=== PATIENT | female | born 1985 | race Caucasian/White ===

== ENCOUNTER 2018-11-24 12:53 | Outpatient (CLI) | payer SELFPAY ==
[2018-11-24] MEDS ORDERED: LACTATED RINGERS 1,000 ML IV ONE (13:47)
[2018-11-24 13:51] VITALS: BP 123/75
--- NOTE | 2018-11-24 15:26 | Ultrasound Report ---
ULTRASOUND OB LIMITED History: Confirm presentation Technique: Transabdominal ultrasound with Doppler interrogation. Gestation: Single Position: Cephalic Heart Rate: 131 BPM
== END 2018-11-24 14:50 | disposition home or self-care (01) ==
LOC: TRG 12:53 → UNDOADMIN 16:19 → LD 16:19
PROVIDERS: ATTEND Obstetrics & Gynecology
DX: O47.1 False labor at or after 37 completed weeks of gestation (principal); Z3A.39 39 weeks gestation of pregnancy
CPT/HCPCS: 59025; 76815; 96360; J7120

== ENCOUNTER 2018-11-24 21:07 | Inpatient (IN) | payer OTHER ==
[2018-11-24] MEDS ORDERED: LACTATED RINGERS 1,000 ML IV SCH (23:45)
[2018-11-24] MEDS ORDERED: PITOCin/NS 20 UNIT/1000ML DRIP 20 UNITS/1,000 ML BAG IV SCH (23:45)
[2018-11-24] MEDS ORDERED: NARCAN 0.4 MG/1 ML IV PRN (23:58)
[2018-11-24] MEDS ORDERED: BRETHINE SUB-Q PRN (23:58)
[2018-11-24] MEDS ORDERED: ZOFRAN IV PRN (23:58)
[2018-11-24] MEDS ORDERED: XYLOCAINE 2% INFILTRATI ONE (23:58)
[2018-11-24] MEDS ORDERED: MINERAL OIL PO PRN (23:58)
[2018-11-25 00:17] LABS: Hematocrit 37.1 % (30.3-42.9); Hemoglobin 12.5 gm/dl (10.1-14.3); Mean Corpuscular HGB Conc 34 % (30-34); Mean Corpuscular Volume 92 fl (79-97); Platelet Count 214 K/mm3 (140-440); Red Blood Count 4.05 M/mm3 (3.65-5.03); Red Cell Distribution Width 13.2 % (13.2-15.2)
[2018-11-25] MEDS: STADOL IV PRN ×2 (03:04→11:11)
--- NOTE | 2018-11-25 10:07 | History and Physical Report ---
History of Present Illness Date of examination: 11/25/18 Date of admission: 11/25/18 00:06 Chief complaint: Labor Pains History of present illness: Early entry to care at [facility], uncomplicated course. Past History Past Medical History: no pertinent history Past Surgical History: no surgical history Family/Genetic History: none Social history: no significant social history, single - Obstetrical History Expected Date of Delivery: 11/30/18 Actual Gestation: 39 Week(s) 2 Day(s) : 3 Para: 2 Hx # Term Pregnancies: 1 Number of Pregnancies: 1 Number of Living Children: 2 #1 Gender: Female year: ,[birth year] Birthweight: 2.722 kg Method of Delivery: Vaginal Gestational age at delivery: 40 Complications: none #2 Infant Gender: Male year: 2[birth year] Birthweight: 2.268 kg Method of Delivery: Vaginal Gestational age at delivery: 34 Complications: none Medications and Allergies Allergies Allergy/AdvReac Type Severity Reaction Status Date / Time No Known Allergies Allergy Unverified 11/24/18 13:13 Home Medications Medication Instructions Recorded Confirmed Last Taken Type Vit-Fe Fumar-FA [ 1 tab PO QDAY 11/24/18 11/24/18 11/24/18 History Vitamin] Active Meds: Active Medications Butorphanol Tartrate (Stadol) 2 mg IV Q2H PRN PRN Reason: Pain , Severe (7-10) Last Admin: 11/25/18 03:04 Dose: 2 mg Documented by: Ephedrine Sulfate (Ephedrine Sulfate) 10 mg IV Q2M PRN PRN Reason: Hypotension Lactated Ringer's (Lactated Ringers) 1,000 mls @ 125 mls/hr IV DIRECT VEL Last Admin: 11/25/18 06:31 Dose: 125 mls/hr Documented by: Oxytocin/Sodium Chloride (Pitocin/Ns 20 Unit/1000ml Drip) 20 units in 1,000 mls @ 125 mls/hr IV DIRECT VEL Mineral Oil (Mineral Oil) 30 ml PO QHS PRN PRN Reason: Constipation Naloxone HCl (Narcan 0.4 Mg/1 Ml) 0.1 mg IV Q2MIN PRN PRN Reason: Res Rate </= 8 or 02 SAT < 92% Ondansetron HCl (Zofran) 4 mg IV Q8H PRN PRN Reason: Nausea And Vomiting Terbutaline Sulfate (Brethine) 0.25 mg SUB-Q ONCE PRN PRN Reason: Hyperstimulation/Hypertonicity Review of Systems All systems: negative - Vital Signs Vital signs: Vital Signs Pulse BP 71 117/65 11/24/18 21:25 11/24/18 21:25 Temp Pulse Resp BP Pulse Ox 98.6 F 89 18 115/72 97 11/24/18 21:53 11/25/18 09:59 11/25/18 03:04 11/25/18 08:54 11/25/18 09:59 - Physical Exam Breasts: Positive: normal Cardiovascular: Regular rate Lungs: Positive: Clear to auscultation, Normal air movement Abdomen: Positive: normal appearance, soft, normal bowel sounds Genitourinary (Female): Positive: normal external genitalia, normal perenium Vagina: Positive: normal moisture Uterus: Positive: enlarged Anus/Rectum: Positive: normal perianal skin - Obstetrical FHR: category 1 Uterine Contraction Monitor Mode: Internal Cervical Dilatation: 5 (Moderate amount of clear fluid upon AROM at 1000) Cervical Effacement Percentage: 70 station: -2 Uterine Contraction Pattern: Irregular Uterine Tone Measurement Phase: Resting Uterine Contraction Intensity: Moderate Results Result Diagrams: 11/24/18 00:03 All other labs normal. Assessment and Plan A: IUP @ 39 2/7 Weeks Category I Tracing Active Labor GBS Negative P: Admit to L&D per Routine Orders AROM Internals X2 Pitocin Augmentation
[2018-11-25] MEDS ORDERED: PITOCin/NS 30 UNIT/500ML 30 UNITS/500 ML BAG IV SCH (11:00)
[2018-11-25] MEDS ORDERED: SUBLIMAZE IV ONE (12:31)
[2018-11-25] MEDS ORDERED: NARCAN 2 MG/2 ML IV PRN (12:58)
[2018-11-25] MEDS ORDERED: fentaNYL-BUPIV 2 MCG/ML-0.125% 200 MCG/100 ML BAG EPIDURAL SCH (13:00)
--- NOTE | 2018-11-25 13:00 | Anesthesia Consultation ---
Anesthesia Consult and Med Hx Date of service: 11/25/18 - Airway Anesthetic Teeth Evaluation: Good ROM Head & Neck: Adequate Mental/Hyoid Distance: Adequate Mallampati Class: Class II Intubation Access Assessment: Probably Good - Pre-Operative Health Status ASA Pre-Surgery Classification: ASA2 Proposed Anesthetic Plan: Epidural, Spinal - Pulmonary Hx Asthma: No COPD: No Hx Pneumonia: No - Cardiovascular System Hx Hypertension: No - Central Nervous System Hx Seizures: No Hx Psychiatric Problems: No - Endocrine Hx Renal Disease: No Hx End Stage Renal Disease: No Hx Hypothyroidism: No Hx Hyperthyroidism: No - Hematic Hx Anemia: Yes (previous ) Hx Sickle Cell Disease: No - Other Systems Hx Alcohol Use: No
--- NOTE | 2018-11-25 13:00 | Anesthesia Day of Surgery ---
Anesthesia Day of Surgery - Day of Surgery Patient Examined: Yes Patient H&P Reviewed: Yes Patient is NPO: Yes
[2018-11-25] MEDS ORDERED: BENADRYL PO PRN (15:05)
[2018-11-25] MEDS ORDERED: LANSINOH TP PRN (15:05)
[2018-11-25] MEDS ORDERED: TUCKS PAD TP PRN (15:05)
[2018-11-25] MEDS ORDERED: PHENERGAN PR PRN (15:05)
[2018-11-25] MEDS ORDERED: NORCO 5/325 PO PRN (15:08)
--- NOTE | 2018-11-25 15:13 | Procedure Note ---
OB Delivery Note - Delivery Date of Delivery: 11/25/18 (1450) Surgeon: MIGDALIA LUIS Estimated blood loss: 200cc - Vaginal Delivery presentation: vertex Delivery position: OA Intrapartum events: none Delivery induction: none Delivery augmentation: rupture of membranes, pitocin Delivery monitor: external FHT, external uterine Route of delivery: Delivery placenta: spontaneous Delivery cord: 3 umbilical vessels Episiotomy: none Delivery laceration: none Anesthesia: epidural Delivery comments: of a live 7'13 male over a intact perineum under epidural anesthesia with Apgars of 7 and 8 at 1450 on 11/25/2018. directly to maternal abd/chest, skin to skin contact. Cord double clamped and cut by the Father of the Baby. Spontaneous delivery of the placenta complete and intact with [place] side presenting at 1456. Fundus is firm and midline located 4 below the U. Lochia is scant. Placenta discarded. - A at 1 minute: 7 at 5 minutes: 8 Gender: Male (7'13)
[2018-11-25] MEDS: IBUPROFEN PO SCH (15:36)
[2018-11-25] MEDS ORDERED: SODIUM CHLORIDE FLUSH SYRINGE 10 ML IV NR (16:00)
[2018-11-26] MEDS: IBUPROFEN PO SCH ×4 (00:05→17:25)
[2018-11-26 03:01] LABS: Hematocrit 33.6 % (30.3-42.9); Hemoglobin 11.3 gm/dl (10.1-14.3)
[2018-11-26] MEDS ORDERED: PRENATAL VITAMIN PO SCH (10:00)
--- NOTE | 2018-11-26 12:00 | Progress Note ---
Assessment and Plan A: PPD#1 s/p Stable Uncertain on Contraception Desires Discharge home P: Routine PP orders Discharge home today pending Peds PPE in 6 weeks Subjective - Subjective Date of service: 11/26/18 Principal diagnosis: PPD#1 s/p Patient reports: appetite normal, voiding normally, pain well controlled, flatus, ambulating normally, no bowel movement : doing well, other (Breast/bottle) Objective - Vital Signs Latest vital signs: Vital Signs Temp Pulse Resp BP BP Pulse Ox 11/26/18 07:30 98.3 F 72 16 95/63 97 11/26/18 00:30 98.4 F 72 18 98/67 11/25/18 19:30 98.7 F 81 16 115/67 11/25/18 16:25 98.7 F 78 18 111/64 11/25/18 14:48 122 H 118/74 11/25/18 14:32 92 H 132/62 11/25/18 14:17 99 H 200/73 11/25/18 14:02 93 H 97 11/25/18 14:00 92 H 145/74 11/25/18 13:59 99 H 89 11/25/18 13:58 98 H 130/82 11/25/18 13:57 105 H 96 11/25/18 13:56 107 H 130/81 11/25/18 13:54 93 H 129/77 11/25/18 13:52 100 H 132/76 98 11/25/18 13:49 95 H 131/71 11/25/18 13:48 77 78 L 11/25/18 13:47 98 H 97 11/25/18 13:46 90 105/59 11/25/18 13:44 90 121/70 11/25/18 13:42 88 121/69 100 11/25/18 13:40 85 129/69 11/25/18 13:38 82 120/65 11/25/18 13:37 93 H 100 11/25/18 13:36 86 120/62 11/25/18 13:34 90 131/68 11/25/18 13:32 98 H 131/58 99 11/25/18 13:30 97 H 122/65 11/25/18 13:28 86 107/58 11/25/18 13:27 76 100 11/25/18 13:26 76 104/64 11/25/18 13:24 99 H 100/53 86 11/25/18 13:23 81 151/55 11/25/18 13:22 86 99 11/25/18 13:20 92 H 107/55 11/25/18 13:18 90 115/60 11/25/18 13:17 88 100 11/25/18 13:16 85 107/59 11/25/18 13:14 75 103/59 11/25/18 13:12 83 106/58 100 11/25/18 13:11 82 123/56 11/25/18 13:08 90 115/61 11/25/18 13:07 95 H 99 11/25/18 13:06 85 105/63 11/25/18 13:04 96 H 97/56 11/25/18 13:02 89 94/50 96 11/25/18 13:00 106/59 11/25/18 12:58 87 100/55 11/25/18 12:57 90 96 11/25/18 12:56 82 95/55 11/25/18 12:54 93 H 97/50 11/25/18 12:53 70 94 11/25/18 12:52 73 94/47 94 11/25/18 12:50 89 102/55 11/25/18 12:48 86 106/50 11/25/18 12:46 79 100/66 11/25/18 12:44 90 131/63 94 11/25/18 12:42 77 130/65 11/25/18 12:41 74 138/63 11/25/18 12:39 75 93 11/25/18 12:37 84 89 11/25/18 12:34 83 97 11/25/18 12:29 80 97 11/25/18 12:25 93 11/25/18 12:24 88 93 11/25/18 12:20 87 94 11/25/18 12:19 75 97 11/25/18 12:14 91 H 97 11/25/18 12:09 74 94 11/25/18 12:08 79 93 11/25/18 12:04 72 102/53 97 11/25/18 12:01 75 90 11/25/18 11:59 71 94 Intake and Output 11/25/18 11/26/18 11/26/18 23:59 07:59 15:59 Intake Total 200 Output Total 600 Balance -600 200 Intake: Oral 200 Output: Urine 600 Void 600 Other: Total, Intake Amount 200 Total, Output Amount 600 # Voids Void 1 1 - Exam Breasts: Present: normal, Cardiovascular: Present: Regular rate, Normal S1, Normal S2, No murmurs Lungs: Present: Clear to auscultation, Normal air movement Abdomen: Present: normal appearance, soft, normal bowel sounds. Absent: distention, tenderness Vulva: both: normal Uterus: Present: firm, fundal height below umbilicus (-1) Extremities: Present: normal Deep Tendon Reflex Grade: Normal +2
--- NOTE | 2018-11-26 12:01 | Discharge Summary ---
Providers - Providers Date of Admission: 11/25/18 00:06 Date of discharge: 11/26/18 Attending physician: BENJAMÍN ANDERSON MD Primary care physician: BENJAMÍN ANDERSON MD Hospitalization Reason for admission: active labor, IUP at term Delivery: Procedure details: See delivery note Episiotomy: none Laceration: none Other procedures: none complications: none Discharge diagnosis: IUP at term delivered [place] baby: male Condition at discharge: Good Disposition: DC-01 TO HOME OR SELFCARE Plan - Provider Discharge Summary Activity: routine, no sex for 6 weeks, no heavy lifting 4 weeks, no strenuous exercise Diet: routine Instructions: routine Additional instructions: [] Smoking cessation referral if applicable(refer to patient education folder for contact #) [] Refer to [facility] Booklet Call your doctor immediately for: * Fever > 100.5 * Heavy vaginal bleeding ( >1 pad per hour) * Severe persistent headache * Shortness of breath * Reddened, hot, painful area to leg or breast * Drainage or odor from incision. * Keep incision clean and dry at all times and follow doctor's instructions regarding bathing/showering - Follow up plan Follow up: BENJAMÍN ANDERSON MD [Primary Care Provider] - 6 Weeks
[2018-11-27] MEDS: IBUPROFEN PO SCH ×2 (04:21→12:45)
[2018-11-27 14:39] VITALS: BP 107/65
== END 2018-11-27 17:00 | disposition home or self-care (01) | DRG 807 ==
LOC: TRG 21:07 → LD 11-25 00:06 → OB 11-25 16:33
PROVIDERS: ADMIT Obstetrics & Gynecology; ATTEND Obstetrics & Gynecology
PROC: 10E0XZZ Delivery of Products of Conception, External Approach (ICD-10-PCS; principal; 2018-11-25)
PROC: 10907ZC Drainage of Amniotic Fluid, Therapeutic from Products of Conception, Via Natural or Artificial Opening (ICD-10-PCS; 2018-11-25)
PROC: 3E0R3BZ Introduction of Anesthetic Agent into Spinal Canal, Percutaneous Approach (ICD-10-PCS; 2018-11-25)
PROC: 00HU33Z Insertion of Infusion Device into Spinal Canal, Percutaneous Approach (ICD-10-PCS; 2018-11-25)
DX: O80 Encounter for full-term uncomplicated delivery (principal); Z37.0 Single live birth; Z3A.39 39 weeks gestation of pregnancy
CPT/HCPCS: 36415; 85014; 85018; 85027; 86592; 86850; 86900; 86901; G0378; J0595; J2590; J3010; J7120

== ENCOUNTER 2021-04-07 23:13 | Inpatient (IN) | payer MEDICAID ==
[2021-04-08] MEDS ORDERED: TERBUTALINE 1 MG/1 ML INJ SUB-Q PRN (01:20)
[2021-04-08] MEDS ORDERED: AMPICILLIN/NS 2 GM/100 ML 2 GM/100 ML BAG IV ONE (01:20)
[2021-04-08] MEDS ORDERED: MINERAL OIL 30 ML ORAL LIQD PO PRN (01:20)
[2021-04-08] MEDS ORDERED: ePHEDrine SULFATE 50 MG/1 ML INJ IV PRN (01:20)
[2021-04-08] MEDS ORDERED: ONDANSETRON 4 MG/2 ML INJ IV PRN (01:20)
[2021-04-08] MEDS ORDERED: LIDOCAINE (2%) 20 MG/1 ML VIAL 20 ML MDV INFILTRATI ONE (01:20)
[2021-04-08] MEDS ORDERED: OXYTOCIN DRIP 30 UNITS/500 ML BAG IV SCH ×2 (02:00→06:00)
[2021-04-08 03:15] LABS: Hematocrit 36.2 % (30.3-42.9); Hemoglobin 12.6 gm/dl (10.1-14.3); Mean Corpuscular HGB Conc 35 % (30-34); Mean Corpuscular Volume 94 fl (79-97); Platelet Count 220 K/mm3 (140-440); Red Blood Count 3.87 M/mm3 (3.65-5.03); Red Cell Distribution Width 13.3 % (13.2-15.2)
[2021-04-08] MEDS: LACTATED RINGERS 1,000 ML IV SCH ×3 (03:24→19:45)
--- NOTE | 2021-04-08 04:36 | History and Physical Report ---
History of Present Illness Date of examination: 04/08/21 Date of admission: 04/08/21 01:20 Chief complaint: [id number] at 37.6 weeks by LNMP c/with first trimester US presents with SROM. +ve contractions, no VB, +ve GFM PNC at [facility]. Total visits #11 OB problem list: AMA Hx of GDM: diagnostic testing WNL in current Labs: A pos Rubella immune VDRL NR HBsAG Neg HIV NR GC/Chlamydia negative Past History Past Surgical History: no surgical history Family/Genetic History: none Social history: no significant social history - Obstetrical History Expected Date of Delivery: 04/23/21 Actual Gestation: 37 Week(s) 6 Day(s) : 4 Para: 3 Medications and Allergies Allergies Allergy/AdvReac Type Severity Reaction Status Date / Time No Known Allergies Allergy Verified 04/08/21 04:39 Home Medications Medication Instructions Recorded Confirmed Last Taken Type Vit-Fe Fumar-FA [ 1 tab PO QDAY 11/24/18 11/24/18 11/24/18 History Vitamin] Active Meds: Active Medications Ephedrine Sulfate (Ephedrine Sulfate 50 Mg/1 Ml Inj) 10 mg IV Q2M PRN PRN Reason: Hypotension Fentanyl (Fentanyl 100 Mcg/2 Ml Inj) 100 mcg IV Q2H PRN PRN Reason: Pain,Severe (7-10) LABOR PAIN Lactated Ringer's (Lactated Ringers) 1,000 mls @ 125 mls/hr IV DIRECT VEL Last Admin: 04/08/21 03:24 Dose: 125 mls/hr Documented by: Oxytocin/Sodium Chloride (Pitocin/Ns 30 Unit/500ml) 30 units in 500 mls @ 40 mls/hr IV TITR VEL; Protocol Mineral Oil (Mineral Oil 30 Ml Oral Liqd) 30 ml PO QHS PRN PRN Reason: Constipation Ondansetron HCl (Ondansetron 4 Mg/2 Ml Inj) 4 mg IV Q8H PRN PRN Reason: Nausea And Vomiting Terbutaline Sulfate (Terbutaline 1 Mg/1 Ml Inj) 0.25 mg SUB-Q ONCE PRN PRN Reason: Hyperstimulation/Hypertonicity Review of Systems All systems: negative (see HPI) - Vital Signs Vital signs: Vital Signs Pulse BP Pulse Ox 91 H 117/68 97 04/07/21 23:39 04/07/21 23:39 04/07/21 23:39 Temp Pulse Resp BP Pulse Ox 98.8 F 74 20 110/69 97 04/08/21 02:23 04/08/21 04:30 04/08/21 02:23 04/08/21 02:31 04/08/21 04:30 - Physical Exam Breasts: Positive: deferred Cardiovascular: Regular rate Lungs: Positive: Clear to auscultation Abdomen: Positive: normal appearance, soft, normal bowel sounds Genitourinary (Female): Positive: normal external genitalia, normal perenium Anus/Rectum: Positive: normal perianal skin Extremities: Positive: normal Deep Tendon Reflex Grade: Normal +2 - Obstetrical FHR: category 1 Cervical Dilatation: 1 Cervical Effacement Percentage: 40 station: -3 Uterine Contraction Pattern: Irregular Results Result Diagrams: 04/08/21 03:00 Abnormal lab results 04/08/21 04/08/21 Range/Units 00:19 03:00 MCH 33 H (28-32) pg MCHC 35 H (30-34) % Membranes Rupture Positive A (Negative) All other labs normal. Assessment and Plan admission CFM pain meds prn misoprostil/Oxytocin GBS coverage PRN Maernal/feal well being reassuring at bedside Katherin Hernandez MD
[2021-04-08] MEDS: AMPICILLIN/NS 1 GM/50 ML 1 GM/50 ML BAG IV SCH ×4 (07:22→19:42)
--- NOTE | 2021-04-08 09:27 | Event Note ---
Date: 04/08/21 Assumed care of patient at 08:00. SVE 3/50/-4. Contractions every 2-4 minutes. Category 1 FHR tracing. Receiving Pitocin for augmentation of labor.
--- NOTE | 2021-04-08 10:22 | Anesthesia Consultation ---
Anesthesia Consult and Med Hx Date of service: 04/08/21 - Airway Anesthetic Teeth Evaluation: Good ROM Head & Neck: Adequate Mental/Hyoid Distance: Adequate Mallampati Class: Class II Intubation Access Assessment: Probably Good - Pulmonary Exam CTA: Yes - Cardiac Exam Cardiac Exam: RRR - Pre-Operative Health Status ASA Pre-Surgery Classification: ASA3 Proposed Anesthetic Plan: Epidural - Pulmonary Hx Asthma: No COPD: No Hx Pneumonia: No - Cardiovascular System Hx Hypertension: No - Central Nervous System Hx Seizures: No Hx Psychiatric Problems: No - Endocrine Hx Renal Disease: No Hx End Stage Renal Disease: No Hx Non-Insulin Dependent Diabetes: Yes Hx Hypothyroidism: No Hx Hyperthyroidism: No - Hematic Hx Sickle Cell Disease: No - Other Systems Hx Alcohol Use: No
[2021-04-08] MEDS: fentaNYL 100 MCG/2 ML INJ IV PRN ×2 (10:55→22:00)
--- NOTE | 2021-04-08 13:37 | Event Note ---
Date: 04/08/21 E 3.4.
--- NOTE | 2021-04-08 18:48 | Event Note ---
Date: 04/08/21 SVE .
[2021-04-08] MEDS ORDERED: ACETAMINOPHEN 325 MG TAB PO ONE (21:38)
--- NOTE | 2021-04-08 23:41 | Event Note ---
Date: 04/08/21 No LOF seen. Consulted with Dr. Hernandez re: patient and slow cervical change. Dr. Hernandez ordered to turn Pitocin off and let patient rest; then may restart Pitocin after patient rests. Category 1 FHR tracing.
[2021-04-09] MEDS: AMPICILLIN/NS 1 GM/50 ML 1 GM/50 ML BAG IV SCH ×4 (00:30→09:53)
[2021-04-09] MEDS: LACTATED RINGERS 1,000 ML IV SCH ×2 (04:13→10:54)
[2021-04-09] MEDS: fentaNYL 100 MCG/2 ML INJ IV PRN (08:23)
--- NOTE | 2021-04-09 09:37 | Ultrasound Report ---
ULTRASOUND OBSTETRIC LIMITED INDICATION / CLINICAL INFORMATION: presentation only. Clinical Gestational Age (GA): Not provided COMPARISON: None available. FINDINGS: HEART RATE (beats per minute): 123 PRESENTATION: Cephalic. ADDITIONAL FINDINGS: None. IMPRESSION: 1. Cephalic presentation. No significant abnormality. Signer Name: Tadeo Richardson MD Signed: 04/09/2021 9:32 AM Workstation Name: [id number]
--- NOTE | 2021-04-09 10:11 | Progress Note ---
Assessment and Plan A: IUP @ 38 Weeks Category I Tracing PROM GBS Negative P: AROM of [place] IUPC Continue Pitocin Augmentation Subjective - Subjective Date of service: 04/09/21 Patient reports: movement normal, contractions Objective - Vital Signs Vital Signs: Vital Signs - 12hr 04/08/21 04/08/21 04/08/21 22:12 22:17 22:22 Temperature Pulse Rate 64 64 79 Respiratory Rate Blood Pressure O2 Sat by Pulse 98 98 98 Oximetry 04/08/21 04/08/21 04/08/21 22:27 22:32 22:37 Temperature Pulse Rate 68 61 67 Respiratory Rate Blood Pressure O2 Sat by Pulse 98 98 98 Oximetry 04/08/21 04/08/21 04/08/21 22:42 22:47 22:52 Temperature Pulse Rate 86 80 82 Respiratory Rate Blood Pressure O2 Sat by Pulse 98 98 98 Oximetry 04/08/21 04/08/21 04/08/21 22:57 23:02 23:07 Temperature Pulse Rate 69 66 91 H Respiratory Rate Blood Pressure O2 Sat by Pulse 98 99 96 Oximetry 04/08/21 04/08/21 04/08/21 23:12 23:17 23:22 Temperature Pulse Rate 59 L 76 65 Respiratory Rate Blood Pressure O2 Sat by Pulse 98 99 98 Oximetry 04/08/21 04/08/21 04/08/21 23:27 23:32 23:37 Temperature Pulse Rate 60 64 65 Respiratory Rate Blood Pressure O2 Sat by Pulse 97 97 97 Oximetry 04/08/21 04/08/21 04/08/21 23:42 23:47 23:52 Temperature Pulse Rate 67 68 98 H Respiratory Rate Blood Pressure O2 Sat by Pulse 96 96 96 Oximetry 04/08/21 04/09/21 04/09/21 23:57 00:02 00:07 Temperature Pulse Rate 70 73 79 Respiratory Rate Blood Pressure O2 Sat by Pulse 96 96 96 Oximetry 04/09/21 04/09/21 04/09/21 00:12 00:17 00:22 Temperature Pulse Rate 76 77 79 Respiratory Rate Blood Pressure O2 Sat by Pulse 97 96 96 Oximetry 04/09/21 04/09/21 04/09/21 00:27 00:32 00:37 Temperature Pulse Rate 79 89 78 Respiratory Rate Blood Pressure 100/52 O2 Sat by Pulse 97 98 97 Oximetry 04/09/21 04/09/2104/09/21 00:42 00:45 00:47 Temperature Pulse Rate 76 81 86 Respiratory Rate Blood Pressure O2 Sat by Pulse 96 94 96 Oximetry 04/09/21 04/09/21 04/09/21 00:50 00:52 00:57 Temperature Pulse Rate 82 89 85 Respiratory Rate Blood Pressure O2 Sat by Pulse 91 97 96 Oximetry 04/09/21 04/09/21 04/09/21 01:02 01:07 01:12 Temperature Pulse Rate 71 75 75 Respiratory Rate Blood Pressure O2 Sat by Pulse 97 96 96 Oximetry 04/09/21 04/09/21 04/09/21 01:17 01:22 01:27 Temperature Pulse Rate 73 74 71 Respiratory Rate Blood Pressure O2 Sat by Pulse 97 96 97 Oximetry 04/09/21 04/09/21 04/09/21 01:32 01:37 01:42 Temperature Pulse Rate 74 74 74 Respiratory Rate Blood Pressure O2 Sat by Pulse 96 97 96 Oximetry 04/09/21 04/09/21 04/09/21 01:47 01:52 01:57 Temperature Pulse Rate 75 72 74 Respiratory Rate Blood Pressure O2 Sat by Pulse 96 96 96 Oximetry 04/09/21 04/09/21 04/09/21 02:02 02:07 02:12 Temperature Pulse Rate 74 79 72 Respiratory Rate Blood Pressure O2 Sat by Pulse 96 98 97 Oximetry 04/09/21 04/09/21 04/09/21 02:17 02:22 02:27 Temperature Pulse Rate 72 71 75 Respiratory Rate Blood Pressure O2 Sat by Pulse 97 97 97 Oximetry 04/09/21 04/09/21 04/09/21 02:32 02:37 02:42 Temperature Pulse Rate 87 78 76 Respiratory Rate Blood Pressure O2 Sat by Pulse 97 97 97 Oximetry 04/09/21 04/09/21 04/09/21 02:47 02:52 02:57 Temperature Pulse Rate 77 69 68 Respiratory Rate Blood Pressure O2 Sat by Pulse 97 96 97 Oximetry 04/09/21 04/09/21 04/09/21 03:02 03:07 03:12 Temperature Pulse Rate 68 68 70 Respiratory Rate Blood Pressure O2 Sat by Pulse 97 97 97 Oximetry 04/09/21 04/09/21 04/09/21 03:17 03:22 03:27 Temperature Pulse Rate 66 68 65 Respiratory Rate Blood Pressure O2 Sat by Pulse 97 97 98 Oximetry 04/09/21 04/09/21 04/09/21 03:32 03:37 03:42 Temperature Pulse Rate 85 64 66 Respiratory Rate Blood Pressure O2 Sat by Pulse 98 97 97 Oximetry 04/09/21 04/09/21 04/09/21 03:47 03:52 03:57 Temperature Pulse Rate 69 66 66 Respiratory Rate Blood Pressure O2 Sat by Pulse 98 98 97 Oximetry 04/09/21 04/09/21 04/09/21 04:02 04:07 04:12 Temperature Pulse Rate 60 75 69 Respiratory Rate Blood Pressure O2 Sat by Pulse 98 98 99 Oximetry 04/09/21 04/09/21 04/09/21 04:15 04:17 04:22 Temperature Pulse Rate 70 76 77 Respiratory Rate Blood Pressure 98/55 O2 Sat by Pulse 99 98 Oximetry 04/09/21 04/09/21 04/09/21 04:27 04:32 04:37 Temperature Pulse Rate 70 70 72 Respiratory Rate Blood Pressure O2 Sat by Pulse 98 99 99 Oximetry 04/09/21 04/09/21 04/09/21 04:44 04:49 04:54 Temperature Pulse Rate 74 65 72 Respiratory Rate Blood Pressure O2 Sat by Pulse 99 98 98 Oximetry 04/09/21 04/09/21 04/09/21 04:59 05:04 05:09 Temperature Pulse Rate 62 65 65 Respiratory Rate Blood Pressure O2 Sat by Pulse 98 98 98 Oximetry 04/09/21 04/09/21 04/09/21 05:14 05:19 05:24 Temperature Pulse Rate 78 69 64 Respiratory Rate Blood Pressure O2 Sat by Pulse 98 98 98 Oximetry 04/09/21 04/09/21 04/09/21 05:29 05:34 05:39 Temperature Pulse Rate 66 63 64 Respiratory Rate Blood Pressure O2 Sat by Pulse 98 98 98 Oximetry 04/09/21 04/09/21 04/09/21 05:44 05:49 05:54 Temperature Pulse Rate 65 61 62 Respiratory Rate Blood Pressure O2 Sat by Pulse 97 97 97 Oximetry 04/09/21 04/09/21 04/09/21 05:59 06:04 06:09 Temperature Pulse Rate 71 70 60 Respiratory Rate Blood Pressure O2 Sat by Pulse 98 98 98 Oximetry 04/09/21 04/09/21 04/09/21 06:14 06:19 06:24 Temperature Pulse Rate 61 66 65 Respiratory Rate Blood Pressure O2 Sat by Pulse 99 98 98 Oximetry 04/09/21 04/09/21 04/09/21 06:29 06:34 06:39 Temperature Pulse Rate 68 63 70 Respiratory Rate Blood Pressure O2 Sat by Pulse 98 97 98 Oximetry 04/09/21 04/09/21 04/09/21 06:44 06:49 06:54 Temperature Pulse Rate 64 67 73 Respiratory Rate Blood Pressure O2 Sat by Pulse 98 98 98 Oximetry 04/09/21 04/09/21 04/09/21 06:59 07:04 07:09 Temperature Pulse Rate 67 71 74 Respiratory Rate Blood Pressure O2 Sat by Pulse 99 99 97 Oximetry 04/09/21 04/09/21 04/09/21 07:12 07:14 07:19 Temperature Pulse Rate 65 73 73 Respiratory Rate Blood Pressure 112/64 O2 Sat by Pulse 98 97 Oximetry 04/09/21 04/09/21 04/09/21 07:21 07:24 07:29 Temperature Pulse Rate 76 73 Respiratory 16 Rate Blood Pressure O2 Sat by Pulse 98 97 98 Oximetry 04/09/21 04/09/21 04/09/21 07:34 07:39 07:44 Temperature Pulse Rate 74 69 68 Respiratory Rate Blood Pressure O2 Sat by Pulse 98 98 98 Oximetry 04/09/21 04/09/21 04/09/21 07:53 07:58 08:03 Temperature Pulse Rate 61 68 69 Respiratory Rate Blood Pressure O2 Sat by Pulse 99 98 98 Oximetry 04/09/21 04/09/21 04/09/21 08:08 08:13 08:18 Temperature Pulse Rate 64 64 71 Respiratory Rate Blood Pressure O2 Sat by Pulse 98 98 99 Oximetry 04/09/21 04/09/21 04/09/21 08:21 08:23 08:28 Temperature 98.4 F Pulse Rate 68 72 Respiratory 16 Rate Blood Pressure O2 Sat by Pulse 98 97 Oximetry 04/09/21 04/09/21 04/09/21 08:33 08:38 08:43 Temperature Pulse Rate 79 76 69 Respiratory Rate Blood Pressure O2 Sat by Pulse 97 97 97 Oximetry 04/09/21 04/09/21 04/09/21 08:48 08:53 08:58 Temperature Pulse Rate 70 68 69 Respiratory Rate Blood Pressure O2 Sat by Pulse 98 97 98 Oximetry 04/09/21 04/09/21 04/09/21 09:03 09:06 09:08 Temperature Pulse Rate 67 64 65 Respiratory Rate Blood Pressure 122/58 O2 Sat by Pulse 98 98 Oximetry 04/09/21 04/09/21 04/09/21 09:13 09:18 09:23 Temperature Pulse Rate 55 L 63 63 Respiratory Rate Blood Pressure O2 Sat by Pulse 98 99 98 Oximetry 04/09/21 04/09/21 04/09/21 09:28 09:33 09:38 Temperature Pulse Rate 63 61 63 Respiratory Rate Blood Pressure O2 Sat by Pulse 98 96 95 Oximetry 04/09/21 04/09/21 04/09/21 09:43 09:48 09:53 Temperature Pulse Rate 67 66 63 Respiratory Rate Blood Pressure O2 Sat by Pulse 96 98 99 Oximetry 04/09/21 04/09/21 04/09/21 09:58 10:03 10:06 Temperature Pulse Rate 72 71 81 Respiratory Rate Blood Pressure 122/73 O2 Sat by Pulse 98 98 Oximetry - Exam Breasts: normal Cardiovascular: Regular rate Lungs: Clear to auscultation, Normal air movement Abdomen: Present: normal appearance, soft Uterus: Present: normal, firm, fundal height above umbilicus FHR: category 1 Uterine Contraction Monitor Mode: Internal Cervical Dilatation: 5 (AROM of [place] @1003; Moderate amount of clear fluid) Cervical Effacement Percentage: 60 station: -2 Uterine Contraction Pattern: Regular Uterine Tone Measurement Phase: Resting Uterine Contraction Intensity: Moderate - Labs Labs: Abnormal Labs 04/08/21 04/08/21 00:19 03:00 MCH 33 H MCHC 35 H Membranes Rupture Positive A Laboratory Results - last 24 hr 04/08/21 09:44 Coronavirus (PCR) Negative
[2021-04-09] MEDS ORDERED: LACTATED RINGERS 250 ML IV SOLN IV ONE (10:36)
[2021-04-09] MEDS ORDERED: NalbUPHINE 10 MG/1 ML INJ IV PRN (11:00)
[2021-04-09] MEDS ORDERED: fentaNYL-BUPIV 2 MCG/ML-0.125% 200 MCG/100 ML BAG EPIDURAL SCH (11:00)
[2021-04-09] MEDS ORDERED: diphenhydrAMINE 50 MG/ML VIAL IV PRN (11:00)
[2021-04-09] MEDS ORDERED: ONDANSETRON 4 MG/2 ML INJ IV PRN ×2 (11:00→15:33)
[2021-04-09] MEDS ORDERED: NALOXONE 2 MG/2 ML INJ IV PRN (11:00)
--- NOTE | 2021-04-09 11:07 | Anesthesia Consultation ---
Anesthesia Consult and Med Hx Date of service: 04/09/21 - Airway Anesthetic Teeth Evaluation: Good ROM Head & Neck: Adequate Mental/Hyoid Distance: Adequate Mallampati Class: Class I Intubation Access Assessment: Good - Pulmonary Exam CTA: Yes - Cardiac Exam Cardiac Exam: RRR - Pre-Operative Health Status ASA Pre-Surgery Classification: ASA2 Proposed Anesthetic Plan: Epidural - Pulmonary Hx Smoking: No Hx Asthma: No COPD: No Hx Pneumonia: No Hx Sleep Apnea: No - Cardiovascular System Hx Hypertension: No Hx Heart Attack/AMI: No Hx Angina: No - Central Nervous System Hx Seizures: No Hx Psychiatric Problems: No - Gastrointestinal Hx Gastroesophageal Reflux Disease: No - Endocrine Hx Renal Disease: No Hx End Stage Renal Disease: No Hx Liver Disease: No Hx Insulin Dependent Diabetes: No Hx Non-Insulin Dependent Diabetes: No Hx Hypothyroidism: No Hx Hyperthyroidism: No - Hematic Hx Sickle Cell Disease: No - Other Systems Hx Alcohol Use: No
--- NOTE | 2021-04-09 11:09 | Progress Note ---
Labor Epidural - Labor Epidural Start Time: 10:51 Stop Time: 11:01 Performed by:: SHAZIA HAM Procedure: Patient is requesting epidural for labor and pain. H&P, labs were reviewed. Patient IDed, H&P reviewed, all questions and concerns were answered, and consent was signed. Timeout was performed at bedside. Patient in sitting position. Sterile prep and drape was performed. 3ml of 1% lidocaine skin wheal at L[3]- L [4]. 18-gauge Tuohy epidural needle was advanced to loss of resistance with air technique 5cm. Negative CSF positive blood. 18-gauge Tuohy epidural needle was advanced to loss of resistance with air technique 5cm aga in. Negative CSF negative blood. Epidural catheter advanced to [11] centimeters. [negative] Aspiration [negative] test dose. Sterile dressing applied. Patient tolerated procedure.
[2021-04-09] MEDS ORDERED: MINERAL OIL 30 ML ORAL LIQD PO ONE (12:02)
[2021-04-09] MEDS ORDERED: WITCH HAZEL/ GLYCERIN PAD TP PRN (13:15)
[2021-04-09] MEDS ORDERED: LANOLIN/ZINC/DIMETHICONE (LANSINOH) 7 GM TP PRN (13:15)
[2021-04-09] MEDS ORDERED: HYDROcodone/ACETAMINOPHEN 5-325 MG TAB PO PRN (13:15)
--- NOTE | 2021-04-09 13:21 | Procedure Note ---
OB Delivery Note - Delivery Date of Delivery: 04/09/21 (1300) Surgeon: MIGDALIA LUIS Estimated blood loss: 200cc - Vaginal Delivery presentation: vertex Delivery position: OA Intrapartum events: prolonged active phase Delivery induction: oxytocin Delivery augmentation: pitocin Delivery monitor: external FHT, internal uterine Route of delivery: Delivery placenta: spontaneous Episiotomy: none Delivery laceration: none Anesthesia: epidural Delivery comments: of a live 6'15 male infant over a intact perineum under epidural anesthesia with Apgars of 8 and 9 at 1300 on 04/09/2021. Infant directly to maternal abd/chest, skin to skin contact. Spontaneous delivery of placenta complete and intact with [place] side presenting at 1307. Fundus is firm and midline located 4 below the U. Lochia is scant. Delayed cord clamping and cutting; Cord cut by the Father of the Baby. GBS Prophylaxis x 3. Placenta discarded. - A at 1 minute: 8 at 5 minutes: 9 Infant Gender: Male (6'15)
[2021-04-09] MEDS ORDERED: METHYLERGONOVINE MALEATE 0.2 MG/ML VIAL IM ONE ×2 (13:48→13:59)
[2021-04-09] MEDS ORDERED: miSOPROStol 200 MCG TAB PR ONE (13:48)
[2021-04-09] MEDS ORDERED: miSOPROStol 200 MCG TAB ONE (13:58)
[2021-04-09] MEDS ORDERED: CARBOPROST TROMETHAMINE 250 MCG/1 ML INJ IM ONE (13:58)
[2021-04-09] MEDS ORDERED: IBUPROFEN 600 MG TAB PO SCH (14:00)
[2021-04-09] MEDS ORDERED: PROMETHAZINE 25 MG TAB PO PRN (15:33)
[2021-04-09] MEDS ORDERED: MAGNESIUM HYDROXIDE (MOM) ORAL LIQD UDC PO PRN (15:33)
[2021-04-09] MEDS ORDERED: PROMETHAZINE 25 MG RECT SUPP PR PRN (15:33)
[2021-04-09] MEDS ORDERED: oxyCODONE /ACETAMINOPHEN 5-325MG TAB PO PRN (15:33)
[2021-04-09] MEDS ORDERED: WITCH HAZEL/ GLYCERIN PAD TP ONE (16:10)
[2021-04-10] MEDS: IBUPROFEN 600 MG TAB PO SCH ×4 (05:36→17:29)
[2021-04-10 06:26] LABS: Hematocrit 36.5 % (30.3-42.9); Hemoglobin 12.4 gm/dl (10.1-14.3)
[2021-04-10] MEDS ORDERED: PRENATAL VIT27-FE FUMARATE-FOLIC ACID VIT TAB PO SCH (10:00)
--- NOTE | 2021-04-10 10:40 | Progress Note ---
Assessment and Plan PPD # 1 A: S/P P: D/C home per pt request Subjective - Subjective Date of service: 04/10/21 Principal diagnosis: s/p Patient reports: appetite normal, voiding normally, pain well controlled, ambulating normally [place]: doing well, bottle feeding Objective - Vital Signs Latest vital signs: Vital Signs Temp Pulse Resp BP BP Pulse Ox 04/10/21 08:30 97.6 F 72 16 95/58 97 04/10/21 05:36 20 04/10/21 00:00 20 04/09/21 23:56 98.2 F 80 20 113/65 97 04/09/21 15:15 98.3 F 72 20 121/69 97 04/09/21 14:45 80 98 04/09/21 14:40 59 L 99 04/09/21 14:35 69 98 04/09/21 14:31 97.9 F 16 04/09/21 14:30 68 99 04/09/21 14:25 68 98 04/09/21 14:23 71 121/56 04/09/21 14:20 69 97 04/09/21 14:15 86 97 04/09/21 14:10 70 98 04/09/21 14:05 64 98 04/09/21 14:00 71 98 04/09/21 13:55 75 97 04/09/21 13:52 72 112/61 04/09/21 13:50 74 98 04/09/21 13:45 76 98 04/09/21 13:40 77 98 04/09/21 13:35 75 97 04/09/21 13:30 70 96 04/09/21 13:25 78 96 04/09/21 13:22 73 108/55 04/09/21 13:20 78 98 04/09/21 13:15 96 04/09/21 13:10 81 97 04/09/21 13:05 105 H 97 04/09/21 13:00 65 L 04/09/21 12:55 70 L 04/09/21 12:54 100 04/09/21 12:53 72 109/64 04/09/21 12:49 108 H 99 04/09/21 12:44 73 100 04/09/21 12:39 69 99 04/09/21 12:34 81 100 04/09/21 12:29 81 99 04/09/21 12:25 64 139/58 04/09/21 12:24 67 98 04/09/21 12:22 67 108/59 04/09/21 12:20 77 117/64 04/09/21 12:19 77 100 04/09/21 12:14 75 99 04/09/21 12:12 93 H 122/58 04/09/21 12:09 75 96 04/09/21 12:04 85 98 04/09/21 11:59 81 98 04/09/21 11:57 76 107/57 04/09/21 11:54 73 99 04/09/21 11:52 56 L 106/59 04/09/21 11:49 60 99 04/09/21 11:47 58 L 103/59 04/09/21 11:44 61 99 04/09/21 11:43 59 L 102/59 04/09/21 11:39 69 98 04/09/21 11:38 60 104/50 04/09/21 11:34 60 98 04/09/21 11:31 62 101/57 04/09/21 11:29 59 L 97 04/09/21 11:28 66 98/55 04/09/21 11:26 63 95/51 04/09/21 11:24 66 98 04/09/21 11:22 71 109/56 04/09/21 11:19 63 108/58 98 04/09/21 11:16 77 105/56 04/09/21 11:14 76 98 04/09/21 11:13 75 111/59 04/09/21 11:10 73 115/57 04/09/21 11:09 65 98 04/09/21 11:08 75 129/58 04/09/21 11:04 82 98 04/09/21 11:02 67 132/62 04/09/21 10:59 70 96 04/09/21 10:58 76 130/59 04/09/21 10:57 63 94 04/09/21 10:54 55 L 99 04/09/21 10:49 57 L 99 04/09/21 10:45 56 L 93 04/09/21 10:44 76 99 04/09/21 10:40 60 64 L Intake and Output 04/09/21 04/10/21 04/10/21 22:59 06:59 14:59 Intake Total 120 120 Output Total 1000 Balance -880 120 Intake: Oral 120 120 Output: Urine 1000 Void 1000 Other: Total, Intake Amount 120 120 Total, Output Amount 300 # Voids Void 1 - Exam Breasts: Present: normal Abdomen: Present: normal appearance, soft, normal bowel sounds Vulva: both: normal Uterus: Present: normal, firm, fundal height below umbilicus Extremities: Present: normal
--- NOTE | 2021-04-10 10:42 | Post Anesthesia Evaluation ---
- Post Anesthesia Evaluation Patient Participated: Yes Airway Patent: Yes Stable Respiratory Function: Yes Nausea/Vomiting: No Temp > 96.8F: Yes Pain Manageable: Yes Adequeate Hydration: Yes Anesthesia Complications: No Block Receding Appropriately: Yes Patient on Ventilator: No
--- NOTE | 2021-04-10 10:43 | Discharge Summary ---
Providers - Providers Date of Admission: 04/08/21 01:20 Date of discharge: 04/10/21 Attending physician: CARIDAD RAMON MD Primary care physician: CARIDAD RAMON MD Hospitalization Reason for admission: active labor Delivery: Laceration: none Other procedures: none Discharge diagnosis: IUP at term delivered baby: male Hospital course: Pt was admitted in labor and had a w/o pp complications. See H&P, delivery summary, and pp notes. Condition at discharge: Stable Disposition: DC-01 TO HOME OR SELFCARE Plan - Discharge Medications Prescriptions: Ibuprofen [Motrin 600 MG tab] 600 mg PO Q6HR #30 tablet - Provider Discharge Summary Activity: routine, no sex for 6 weeks, no heavy lifting 4 weeks, no strenuous exercise Diet: routine Instructions: routine Additional instructions: [] Smoking cessation referral if applicable(refer to patient education folder for contact #) [] Refer to [facility]'s [facility] Booklet Call your doctor immediately for: * Fever > 100.5 * Heavy vaginal bleeding ( >1 pad per hour) * Severe persistent headache * Shortness of breath * Reddened, hot, painful area to leg or breast * Drainage or odor from incision. * Keep incision clean and dry at all times and follow doctor's instructions regarding bathing/showering - Follow up plan Follow up: CARIDAD RAMON MD [Primary Care Provider] - 6 Weeks
[2021-04-11] MEDS: IBUPROFEN 600 MG TAB PO SCH ×3 (00:16→12:20)
[2021-04-11 10:55] VITALS: BP 106/68
== END 2021-04-11 14:45 | disposition home or self-care (01) | DRG 807 ==
LOC: TRG 23:13 → APU 23:16 → TRG 04-08 01:20 → LD 04-08 01:20 → OB 04-09 15:35
PROVIDERS: ADMIT Obstetrics & Gynecology; ATTEND Obstetrics & Gynecology
PROC: 10E0XZZ Delivery of Products of Conception, External Approach (ICD-10-PCS; principal; 2021-04-09)
PROC: 3E033VJ Introduction of Other Hormone into Peripheral Vein, Percutaneous Approach (ICD-10-PCS; 2021-04-09)
PROC: 3E0R3BZ Introduction of Anesthetic Agent into Spinal Canal, Percutaneous Approach (ICD-10-PCS; 2021-04-09)
PROC: 00HU33Z Insertion of Infusion Device into Spinal Canal, Percutaneous Approach (ICD-10-PCS; 2021-04-09)
PROC: 10907ZC Drainage of Amniotic Fluid, Therapeutic from Products of Conception, Via Natural or Artificial Opening (ICD-10-PCS; 2021-04-09)
PROC: 10H07YZ Insertion of Other Device into Products of Conception, Via Natural or Artificial Opening (ICD-10-PCS; 2021-04-09)
DX: O42.92 Full-term premature rupture of membranes, unspecified as to length of time between rupture and onset of labor (principal); Z37.0 Single live birth; Z20.822 Contact with and (suspected) exposure to COVID-19; O24.92 Unspecified diabetes mellitus in childbirth; Z3A.37 37 weeks gestation of pregnancy
CPT/HCPCS: 36415; 59025; 59200; 76815; 84112; 85014; 85018; 85027; 86592; 86850; 86900; 86901; G0378; J0290; J2210; J2590; J3010; J7120; U0003